=== PATIENT | male | born 1950 | race American Indian/Alaskan Native ===

== ENCOUNTER 2017-04-07 10:20 | Outpatient (CLI) | payer MEDICARE ==
--- NOTE | 2017-04-07 11:28 | XRay Report ---
LUMBOSACRAL SPINE, 5 VIEWS History: Sciatica of right side. Findings: There is adequate bone mineralization. Mild to moderate degenerative disc disease and mild facet arthropathy are identified at all levels. There is no evidence for compression deformity, bone lesion or subluxation. The oblique images demonstrate no evidence for high-grade neural foraminal narrowing or partial defects. There are mild symmetric degenerative changes at the SI joints. Impression: Mild to moderate multilevel degenerative disc disease and facet arthropathy. If radiculopathy is present, consider MRI lumbar spine without contrast.
== END 2017-04-07 10:21 | disposition home or self-care (01) ==
LOC: XRAY 10:20
PROVIDERS: ATTEND Internal Medicine
DX: M51.36 Other intervertebral disc degeneration, lumbar region (principal); M12.88 Other specific arthropathies, not elsewhere classified, other specified site
CPT/HCPCS: 72110